=== PATIENT | male | born 1975 | race Caucasian/White ===

== ENCOUNTER → 2018-02-18 | Outpatient (CLI) | payer OTHER ==
[~2018-02-18] MED LIST: CEPH500 PO; HYDACE5 PO; IBUP400; IBUP600 PO; OXYACE5T PO; RXHYDACE PO
[2018-02-18 20:23] LABS: U Amphetamine Screen Not Detected; U Barbituate Screen Not Detected; U Benzodiazapine Screen Not Detected; U Buprenorphine Screen Not Detected; U Cannabinoids Screen Not Detected; U Cocaine Screen Not Detected; U Methadone Screen Not Detected; U Methamphetamine Screen Not Detected; U Opiates Screen DETECTED; U Oxycodone Screen Not Detected; U Phencyclidine Screen Not Detected; U Propoxyphene Screen Not Detected
== END | disposition home or self-care (01) ==
LOC: LAB 19:50 → LAB SHORT 19:50
PROVIDERS: Nurse Practitioner Family
DX: M51.9 Unspecified thoracic, thoracolumbar and lumbosacral intervertebral disc disorder (principal)
CPT/HCPCS: G0480

== ENCOUNTER 2021-01-14 11:42 | Emergency (ER) | payer OTHER ==
[~2021-01-14] VITALS: Ht 190.5 cm; Wt 118.4 kg
[~2021-01-14 11:42] MED LIST changes: +Cleocin HCl150 MG PO
[2021-01-14] MEDS ORDERED: MONT4 PO (11:49)
[2021-01-14] MEDS ORDERED: OMEP20ER PO (11:49)
== END 2021-01-14 13:16 | disposition home or self-care (01) ==
LOC: ER 11:42
DX: S83.412A Sprain of medial collateral ligament of left knee, initial encounter (principal); F17.220 Nicotine dependence, chewing tobacco, uncomplicated; Y04.0XXA Assault by unarmed brawl or fight, initial encounter
CPT/HCPCS: 73562-LT; 99283-25